=== PATIENT | female | born 1970 | race Caucasian/White ===

== ENCOUNTER 2017-03-07 16:20 | Emergency (ER) | payer BC ==
[2017-03-07 16:27] VITALS: BP 131/75
[2017-03-07] MEDS ORDERED: diphenhydrAMINE HCL 50 MG/ML VIAL IM ONE (16:33)
[2017-03-07] MEDS ORDERED: METHYLPREDNISOLONE ACETATE 80 MG/ML VIAL IM ONE (16:33)
[2017-03-07] MEDS ORDERED: diphenhydrAMINE HCL 50 MG/ML VIAL ONE (16:35)
[2017-03-07] MEDS ORDERED: METHYLPREDNISOLONE ACETATE 80 MG/ML VIAL ONE (16:35)
--- NOTE | 2017-03-07 16:40 | ERNOTE ---
Integumentary HPI - Narrative Date of Service: 03/07/17 - General Presenting Symptoms: rash Time Seen by Provider: 03/07/17 16:30 Source: patient Exam Limitations: no limitations - Immun/Allergies/Home Medications Immunizations: IMMUNIZATION HX Immunizations Up to Date Yes History of Influenza Vaccine No Hx Pneumococcal Vaccination No Allergies/Adverse Reactions: Allergies Allergy/AdvReac Type Severity Reaction Status Date / Time ketorolac [From Toradol] Allergy Intermediate Hives Verified 03/07/17 16:28 Home Medications: HOME MEDICATIONS Fexofenadine HCl [Rosanna Allergy] 180 mg PO DAILY 03/07/17 [Last Taken Unknown] predniSONE [Prednisone] 3 tab PO DAILY #9 tab 03/07/17 [Last Taken Unknown] - History of Present Illness Narrative: Pt. c/o getting exposed to poison sumac while cleaning out her garden beds two days ago an states that the rash has spread from her hands and arms to her face. Pt. denies any fever, SOB, CP, NVD, alleviating factors despite using hydrocortisone cream. Review of Systems - Review of Systems Constitutional: Present: no symptoms reported. Absent: recent illness, fever, chills, weakness, fatigue EYE: Present: no symptoms reported ENT: Present: no symptoms reported Respiratory: Present: no symptoms reported. Absent: shortness of breath, cough , wheezing Cardiology: Present: no symptoms reported. Absent: chest pain, palpitations, edema Musculoskeletal: Present: no symptoms reported. Absent: back pain, joint pain Skin: Present: rash - face B hands and neck Neurological: Present: no symptoms reported. Absent: headache, dizziness/light- headedness, numbness, tingling All Other Systems: All systems neg except as marked - Patient's Past Medical History Patient History - Medical: No pertinent hx Patient History - Cardiac/Respiratory: No pertinent hx Patient History - Cancer: No Hx of Cancer Patient History - Surgical Procedures: No surgical history Patient History - Other: None - Social History Living Situations: home Abuse History: No History of abuse Psych History: No pertinent hx Smoking Status: Never smoker Alcohol Use: occasionally Drug Use: none - Immunizations Immunizations Up to Date: Yes Hx Pneumococcal Vaccination: No History of Influenza Vaccine: No Physical Exam - Physical Exam General Appearance: Present: wd/wn, alert, no apparent distress Eye Exam: Normal inspection: bilateral, PERRL: bilateral, EOMI: bilateral Ears, Nose, Throat: Present: normal ENT inspection, normal pharynx Neck: Present: normal inspection, nontender. Absent: lymphadenopathy (R), lymphadenopathy (L) Respiratory: Present: no respiratory distress, normal breath sounds, no accessory muscle use, chest nontender, lungs clear Cardiovascular/Chest: Present: regular rate, rhythm, no murmur, normal peripheral pulses Back Exam: Present: normal inspection Extremity Exam: Present: other - macular hivelike rash to B hands and arms Neurological Exam: Present: alert, oriented, normal mood/affect, no motor/ sensory deficits Skin Exam: Present: normal color, warm/dry, skin rash - hive like rash to face B arms and neck ED Progress - Vital Signs Patient's Vital Signs:: I have reviewed the patient's vital signs. Vital Signs: Vital Signs 03/07/17 16:23 Temperature 38.1 C H Pulse Rate 83 Respiratory 16 Rate Blood Pressure 131/75 O2 Sat by Pulse 100 Oximetry - Progress/Reassessment Chief Complaint: Rash Departure Clinical Impression: Allergic dermatitis due to poison sumac - Departure Disposition: Home self-care Condition: Good Instructions: Poison Brandi Dermatitis, [id number] Additional Instructions: Please follow up with primary provider if no improvement. Please take Benedryl 25mg every 6 hours until this resolves. Referrals: Sukumar Ragland DO [Primary Care Provider] - Prescriptions: predniSONE [Prednisone] 3 tab PO DAILY #9 tab
--- OUTSIDE RECORDS SUMMARY | 2017-03-07 16:40 | XMS REPORT | Continuity of Care Document ---
:1970 Author Organization [facility] ([facility]) Address [address] [place] [address] Phone [phone] Care Team Providers Name Role Phone MckoyLuis Primary Care Provider [phone] Source Comments This disclosure is being made pursuant to the Care Everywhere program, applicable federal and state laws, and may not contain all informaitonavailable regarding this patient.[facility] ([facility]) Active Allergies and Adverse Reactions Allergen Noted Date Severity Reactions Comments Ketorolac Tromethamine 09/17/2009 Urticaria (Hives) Current Medications No known medications Active Problems Problem Noted Date 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
== END 2017-03-07 16:43 | disposition home or self-care (01) ==
LOC: ER 16:20
DX: L23.7 Allergic contact dermatitis due to plants, except food (principal)